=== PATIENT | male | born 1970 | race Caucasian/White ===

== ENCOUNTER 2019-05-30 10:42 | Emergency (ER) | payer BC ==
[2019-05-30 12:13] LABS: Influenza A Molecular POSITIVE (Negative)
--- NOTE | 2019-05-30 12:57 | UC ---
Respiratory Complaint HPI - HPI Summary HPI Summary: per gimp tacker: "Nonproductive cough and wheezing since Saturday05/25/19. C/o fever and chills begginng of the week but last couple days no fever/chills. Taking mucinex prn. " -here w/ his . She tested + flu A & pneumonia and being sent to ER for recommended admission -he has been feeling better the past few days and his fever "broke" continuing to improve -has some cough and wheezing, -no asthma, no Fhx asthma. -No SOB. mild cough, - History of Current Complaint Chief Complaint: UCRespiratory Stated Complaint: COUGH Time Seen by Provider: 05/30/19 11:54 Pain Intensity: 0 - Allergies/Home Medications Allergies/Adverse Reactions: Allergies Allergy/AdvReac Type Severity Reaction Status Date / Time naproxen Allergy Rash Verified 05/30/19 11:20 Home Medications: Home Medications Lisinopril TAB* [Prinivil TAB 10 MG*] 1 tab DAILY 05/30/19 [History Confirmed ] PMH/Surg Hx/FS Hx/Imm Hx Previously Healthy: Yes Cardiovascular History: Hypertension - Surgical History Surgical History: Yes Surgery Procedure, Year, and Place: Gallbladder. LEFT elbow. RIGHT shoulder/ RIGHT knee - Family History Known Family History: Positive: Hypertension - Social History Alcohol Use: Occasionally Substance Use Type: None Smoking Status (MU): Never Smoked Tobacco Type: Smokeless Tobacco Review of Systems All Other Systems Reviewed And Are Negative: Yes Constitutional: Positive: Fever, Chills, Fatigue Skin: Positive: Negative. Negative: Rash Eyes: Positive: Negative ENT: Positive: Sore Throat, Nasal Discharge Respiratory: Positive: Cough, Other - + wheezing. Negative: Shortness Of Breath Cardiovascular: Positive: Negative. Negative: Palpitations, Chest Pain Gastrointestinal: Positive: Negative. Negative: Vomiting, Diarrhea, Nausea Genitourinary: Positive: Negative Motor: Positive: Negative Neurovascular: Positive: Negative Musculoskeletal: Positive: Negative Neurological: Positive: Negative Psychological: Positive: Negative Is Patient Immunocompromised?: No Physical Exam Triage Information Reviewed: Yes Appearance: Well-Nourished, Ill-Appearing - mild. Vital Signs: Initial Vital Signs Temp 97.6 F 05/30/19 11:21 Pulse 60 05/30/19 11:21 Resp 18 12/21/19 11:21 BP 143/81 05/30/19 11:21 Pulse Ox 96 05/30/19 11:21 Vital Signs Reviewed: Yes Eye Exam: Normal Eyes: Positive: Conjunctiva Clear ENT: Positive: Pharyngeal erythema - + PND, Nasal congestion, Nasal drainage, Other - TMs - b/l cerumen impaction. Negative: Tonsillar swelling, Tonsillar exudate, Sinus tenderness Neck exam: Normal Neck: Positive: Supple, Nontender, No Lymphadenopathy Respiratory: Positive: Chest non-tender, Decreased breath sounds - mild exp wheezing. s/p neb--improved breath sounds w/ increased wheezing throughout, Wheezing. Negative: Crackles, Rhonchi Cardiovascular Exam: Normal Cardiovascular: Positive: RRR, No Murmur Abdominal Exam: Normal Abdomen Description: Positive: Nontender Musculoskeletal Exam: Normal Neurological Exam: Normal Psychological Exam: Normal Skin Exam: Normal Skin: Negative: Rashes Respiratory Course/Dx - Course Course Of Treatment: + influenza A. alb neb --> feels better but now with widespread weehzing -CXR - will call with ersults after d/c in order to expidite his 's trx to the ER. they are agreeable w/ this plan. -alb MDI to pharamcy -blood pressure is slightly elevated d/t illness. -CXR today -I do not appreciate a penumonia - we will call them if oficial report states o/w. we do not wantt o delay his 's arrival to ED. they are very agreeable to this. - Differential Dx/Diagnosis Differential Diagnosis/HQI/PQRI: Asthma, Bronchitis, Influenza, Lower Resp Infection, Sinusitis Provider Diagnosis: Influenza A Discharge ED - Sign-Out/Discharge Documenting (check all that apply): Patient Departure All imaging exams completed and their final reports reviewed: No - Discharge Plan Condition: Stable Disposition: HOME Prescriptions: Albuterol HFA INHALER* [Ventolin HFA Inhaler*] 2 puff INH Q4H PRN 14 Days #1 mdi PRN Reason: Cough Patient Education Materials: Influenza (ED) Referrals: Delfina Lui [Primary Care Provider] - 2 Days Additional Instructions: There is no evidence for bactreial infection at this time. You were given an albuterol neb treatment while here. -please go to the ER if your symptoms worsen. I did not see any penumonia on [facility] chest xray, but we will call you if the official radiology reoprt states otherwise. - Billing Disposition and Condition Condition: STABLE Disposition: Home
[2019-05-30] MEDS ORDERED: Albuterol 2.5 MG/3 ML NEB.SOL* (0.083%) INH ONE (13:13)
--- NOTE | 2019-05-30 14:10 | UC ---
- Progress Note Progress Note: chest xray reoprt is negative. no change in plan. Course/Dx - Diagnoses Provider Diagnoses: Influenza A Discharge ED - Sign-Out/Discharge Documenting (check all that apply): Post-Discharge Follow Up All imaging exams completed and their final reports reviewed: Yes - Discharge Plan Condition: Stable Disposition: HOME Prescriptions: Albuterol HFA INHALER* [Ventolin HFA Inhaler*] 2 puff INH Q4H PRN 14 Days #1 mdi PRN Reason: Cough Patient Education Materials: Influenza (ED) Referrals: Delfina Lui [Primary Care Provider] - 2 Days Additional Instructions: There is no evidence for bactreial infection at this time. You were given an albuterol neb treatment while here. -please go to the ER if your symptoms worsen. I did not see any penumonia on [facility] chest xray, but we will call you if the official radiology reoprt states otherwise. - Billing Disposition and Condition Condition: STABLE Disposition: Home
== END 2019-05-30 14:03 | disposition home or self-care (01) ==
LOC: UCCORT 10:42
DX: J11.1 Influenza due to unidentified influenza virus with other respiratory manifestations (principal); R06.2 Wheezing; I10 Essential (primary) hypertension; J34.89 Other specified disorders of nose and nasal sinuses; Z79.899 Other long term (current) drug therapy; Z88.6 Allergy status to analgesic agent
CPT/HCPCS: 71046; 99202; G0463